=== PATIENT | male | born 1990 | race Caucasian/White ===

== ENCOUNTER 2020-08-17 12:34 | Outpatient (CLI) | payer MEDICARE, MEDICAID, SELFPAY | END 2020-08-17 12:35 | disposition home or self-care (01) | LOC: ANHBWCAUD 12:36 | PROVIDERS: Visit Provider Family Medicine | DX: H90.3 Sensorineural hearing loss, bilateral (principal) | CPT/HCPCS: 92557; 92567 ==

== ENCOUNTER 2023-08-27 08:01 | Outpatient (CLI) | payer MEDICARE, MEDICAID, SELFPAY | END 2023-08-27 08:02 | disposition home or self-care (01) | LOC: ANHBWCAUD 08:02 | PROVIDERS: Visit Provider Family Medicine | DX: H90.3 Sensorineural hearing loss, bilateral (principal) | CPT/HCPCS: 92557; 92567 ==